=== PATIENT | female | born 1975 | race Hispanic/Latino ===

== ENCOUNTER 2019-05-19 16:09 | Emergency (ER) | payer SELFPAY ==
[2019-05-19] MEDS ORDERED: KETOROLAC TROMETHAMINE INJ 30 MG/ML VIAL IM ONE (17:02)
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
[2019-05-19 18:11] VITALS: BP 125/80; TEMP 98; O2SAT 98
== END 2019-05-19 17:50 | disposition home or self-care (01) ==
LOC: ER 16:09
DX: S13.4XXA Sprain of ligaments of cervical spine, initial encounter (principal); S29.012A Strain of muscle and tendon of back wall of thorax, initial encounter; V49.49XA Driver injured in collision with other motor vehicles in traffic accident, initial encounter; Y92.410 Unspecified street and highway as the place of occurrence of the external cause